=== PATIENT | female | born 1980 | race Caucasian/White ===

== ENCOUNTER 2023-12-19 16:38 | Emergency (ER) | payer OTHER ==
--- NOTE | 2023-12-19 16:55 | ED Physician Documentation ---
History of Present Illness - Stated complaint Stated Complaint: EXPOSURE - History obtained from History obtained from: Patient - Additonal information Additional information: She was removing an IV from a patient and as she removed the eye to be the patient jerked and it sprayed blood in her eyes. This happened about half an hour ago. 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 PD PAST MEDICAL HISTORY - Present Medications Home Medications: Ambulatory Orders Medication Instructions Recorded Confirmed No Known Home Medications 12/19/23 12/19/23 - Allergies Allergies/Adverse Reactions: Allergies Allergy/AdvReac Type Severity Reaction Status Date / Time No Known Drug Allergies Allergy Verified 12/19/23 17:02 PD ED PE NORMAL - Vitals Vital signs reviewed: Yes - General General: Alert and oriented X 3, No acute distress - Neuro Neuro: Alert and oriented X 3 - Psych Psych: Normal mood, Normal affect Results - Vitals Vitals: Vital Signs - 24 hr 12/19/23 16:56 Temperature 36.2 C L Heart Rate 115 H Respiratory 20 Rate Blood Pressure 140/94 H O2 Saturation 100 PD Medical Decision Making - ED course ED course: The source patient had already been discharged, but I called the lab and they did have enough blood to do source patient testing and this was ordered. Patient did not want to have baseline testing but would reconsider if his hepatitis or HIV test were positive. She is declining PEP for now but of course would reconsider if his HIV test was positive. Patient source HIV test was negative. Hepatitis is a send out and she is advised to follow-up with employee health for results. Departure - Departure Disposition: 01 Home, Self Care Clinical Impression: Employee exposure to blood Condition: Good Record reviewed to determine appropriate education?: Yes Instructions: ED Body Fluid Exp HC Worker Forms: PCP List Discharge Date/Time: 12/19/23 17:19
[2023-12-19 17:24] VITALS: BP 140/94; O2SAT 100
== END 2023-12-19 17:19 | disposition home or self-care (01) ==
LOC: ED 16:38
DX: Z77.21 Contact with and (suspected) exposure to potentially hazardous body fluids (principal)
CPT/HCPCS: 99281; 99283